=== PATIENT | female | born 1965 | race Two or more races ===

== ENCOUNTER 2017-09-10 20:50 | Emergency (ER) | payer SELFPAY ==
[~2017-09-10] VITALS: Ht 160 cm; Wt 74.8 kg
[2017-09-10] MEDS ORDERED: LORazepam 1MG TABLET ONE (21:53)
[2017-09-10] MEDS ORDERED: MAALOX/HYOSCYAMINE/LIDOCAINE 45 ML BTL ONE (21:53)
[2017-09-10] MEDS ORDERED: MAALOX/HYOSCYAMINE/LIDOCAINE 45 ML BTL PO ONE (22:00)
[2017-09-10] MEDS ORDERED: LORazepam 1MG TABLET PO ONE (22:00)
[2017-09-10 22:12] LABS: BASOPHILS # (AUTO) 0.04 x10^3/uL (0-0.1); BASOPHILS % (AUTO) 0 % (0-1); EOSINOPHILS # (AUTO) 0.07 x10^3/uL (0-0.4); EOSINOPHILS % (AUTO) 1 % (1-7); LYMPHOCYTES # (AUTO) 1.34 x10^3/uL (1-3.4); LYMPHOCYTES % (AUTO) 12 % (22-44); MD NO; MEAN CORPUSCULAR HEMOGLOBIN 29.5 pg (27.0-34.8); MEAN CORPUSCULAR HGB CONC 34.1 g/dL (32.4-35.8); MEAN CORPUSCULAR VOLUME 86.6 fL (80-100); MEAN PLATELET VOLUME 10.2 fL (7.4-10.4); MONOCYTES % (AUTO) 7 % (2-9); NEUTROPHILS # (AUTO) 9.16 x10^3/uL (1.8-6.8); NEUTROPHILS % (AUTO) 80 % (42-75); PLATELET COUNT 242 x10^3/uL (130-400); RED BLOOD COUNT 5.32 x10^6/uL (3.82-5.3); RED CELL DISTRIBUTION WIDTH 14.1 % (9.6-15.2)
[2017-09-10 22:21] LABS: ALANINE AMINOTRANSFERASE 62 U/L (12-78); ALBUMIN 3.3 g/dL (3.4-5.0); ANION GAP 9 mmol/L (5-15); CALCIUM 9.4 mg/dL (8.5-10.1); CHLORIDE 106 mmol/L (98-107); CREATININE 0.76 mg/dL (0.55-1.02)
[2017-09-10 22:24] LABS: ALKALINE PHOSPHATASE 120 U/L (45-117); BILIRUBIN,TOTAL 0.6 mg/dL (0.2-1.0); TOTAL PROTEIN 8.1 g/dL (6.4-8.2)
[2017-09-10 22:26] LABS: TROPONIN I < 0.015 ng/mL (0.000-0.045)
[2017-09-10 22:35] LABS: MICROSCOPIC AUTO
[2017-09-10 22:40] LABS: CULTURE INDICATED? YES
[2017-09-10 23:33] VITALS: BP 145/86
== END 2017-09-10 23:35 | disposition home or self-care (01) ==
LOC: ED 21:59
DX: R50.9 Fever, unspecified (principal); R00.0 Tachycardia, unspecified; B34.9 Viral infection, unspecified; K21.9 Gastro-esophageal reflux disease without esophagitis
CPT/HCPCS: 36415; 71045; 80053; 81001; 83605; 84145; 84484; 85025; 87040; 87077; 87086; 87186; 93005; 99285

== ENCOUNTER 2018-12-06 17:18 | Emergency (ER) | payer OTHER ==
[~2018-12-06] VITALS: Ht 160 cm; Wt 72.6 kg
[2018-12-06 17:26] VITALS: BP 171/89
[2018-12-06] MEDS ORDERED: CARBAMIDE PEROXIDE EAR DROPS 6.5%, 15ML ONE (17:41)
--- NOTE | 2018-12-06 17:48 | NUR ---
medicated per emar
[2018-12-06] MEDS ORDERED: CARBAMIDE PEROXIDE EAR DROPS 6.5%, 15ML RIGHT EAR ONE (18:00)
--- NOTE | 2018-12-06 18:29 | NUR ---
Right ear irrigated w/ minimal result. debrox re-administered per provider. to irrigate again shortly
--- NOTE | 2018-12-06 19:00 | NUR ---
re-irrigated with success. debri removed and immediate pain relief
== END 2018-12-06 19:34 | disposition home or self-care (01) ==
LOC: ED 19:26
DX: H61.21 Impacted cerumen, right ear (principal); H66.91 Otitis media, unspecified, right ear; K21.9 Gastro-esophageal reflux disease without esophagitis
CPT/HCPCS: 69209; 99283